=== PATIENT | female | born 1960 | race Caucasian/White ===

== ENCOUNTER 2016-04-27 13:13 | Emergency (ER) | payer BC ==
[2016-04-27 13:31] VITALS: TEMP 97.6
[2016-04-27 14:04] LABS: BASOPHILS % (AUTO) 2 % (0-3); EOSINOPHILS % (AUTO) 6 % (0-9); HEMATOCRIT 40 % (35-47); MEAN CORPUSCULAR HGB CONC 34.1 gm/dl (32.0-36.0); MEAN CORPUSCULAR VOLUME 94 fL (81-99); MONOCYTES % (AUTO) 8.2 % (0-12)
[2016-04-27 14:22] LABS: ALBUMIN 3.8 gm/dl (3.4-5.0); ALT 23 IU/L (14-63); CALCIUM 8.5 mg/dl (8.5-10.1); GLOM FILT RATE 61 mL/min (>60); SODIUM 141 mMol/L (136-145); THYROID STIMULATING HORMONE 2.597 uU/ml (0.358-3.740)
[2016-04-27 15:08] LABS: APPEARANCE,URINE Clear; BILIRUBIN,URINE NEGATIVE (NEGATIVE); COLOR,URINE Yellow; GLUCOSE, URINE (UA) NEGATIVE (NEGATIVE); KETONES,URINE NEGATIVE (NEGATIVE); LEUKOCYTE ESTERASE ,URINE NEGATIVE (NEGATIVE); NITRATE,URINE NEGATIVE (NEGATIVE); OCCULT BLOOD,URINE TRACE INTACT (NEG-TRACE); PH,URINE 5.5; UROBILINOGEN,URINE 0.2 (0.2-1.0 EU)
[2016-04-27 15:20] LABS: RBC,URINE 0-1 (0-3AV/HPF)
[2016-04-27 15:21] LABS: AMPHETAMINES NEGATIVE (NEGATIVE); METHADONE NEGATIVE (NEGATIVE); OPIATES(OP13) NEGATIVE (NEGATIVE); OXYCODONE(OXY) NEGATIVE (NEGATIVE); PROPOXYPHENE(PPX) NEGATIVE (NEGATIVE); TRICYCLIC ANTIDEPRESSANTS NEGATIVE (NEGATIVE); WBC,URINE NEG (0-5AV/HPF)
[2016-04-27 15:46] VITALS: BP 126/79; PULSE 70; RESP 15; O2SAT 98
== END 2016-04-27 15:44 | disposition home or self-care (01) ==
LOC: ED 13:13
DX: R00.2 Palpitations (principal); R07.9 Chest pain, unspecified
CPT/HCPCS: 36415; 71020; 80053; 80305; 81001; 84443; 84484; 85025; 85610; 93005; 99284

== ENCOUNTER 2016-05-08 14:49 | Emergency (ER) | payer BC ==
[2016-05-08] MEDS ORDERED: ADENOSINE 3 MG/ML SOL IV PRN (15:19)
[2016-05-08] MEDS ORDERED: ADENOSINE 3 MG/ML SOL IV ONE (15:21)
[2016-05-08] MEDS: SODIUM CHLORIDE 0.9% FLUSH 10 ML SOL IV PRN ×2 (15:24→17:21)
[2016-05-08 15:30] LABS: BASOPHILS % (AUTO) 1 % (0-3); EOSINOPHILS % (AUTO) 3 % (0-9); HEMATOCRIT 39 % (35-47); MEAN CORPUSCULAR HGB CONC 33.3 gm/dl (32.0-36.0); MEAN CORPUSCULAR VOLUME 95 fL (81-99); MONOCYTES % (AUTO) 5.1 % (0-12); NEUTROPHILS % (AUTO) 69.4 % (37-80)
[2016-05-08] MEDS ORDERED: SODIUM CHLORIDE 0.9% 1000ML 1,000 ML IV SCH (15:30)
[2016-05-08 15:45] LABS: ALBUMIN 3.6 gm/dl (3.4-5.0); CALCIUM 8.9 mg/dl (8.5-10.1); POTASSIUM 4.4 mMol/L (3.5-5.1)
[2016-05-08 15:54] VITALS: TEMP 98.1
[2016-05-08] MEDS ORDERED: HEPARIN SODIUM 5000 U/ML SOL IV ONE (17:07)
[2016-05-08] MEDS ORDERED: ASPIRIN 81 MG CHEWABLE CTB ONE (17:14)
[2016-05-08] MEDS ORDERED: HEPARIN SODIUM 5000 U/ML SOL ONE (17:14)
[2016-05-08 18:32] VITALS: PULSE 81
[2016-05-08 18:33] VITALS: BP 133/79; RESP 18; O2SAT 100
[2016-05-09] MEDS ORDERED: ASPIRIN 325 MG TAB PO SCH (09:00)
== END 2016-05-08 19:12 | disposition short-term general hospital (02) ==
LOC: ED 14:49
DX: I47.1 Supraventricular tachycardia (principal); R79.89 Other specified abnormal findings of blood chemistry
CPT/HCPCS: 99285 ×3; 80053; 84484; 85025; 85378; 93005 ×2; J0153; J1644; 71010; 96365; 96374; 96375; 99283

== ENCOUNTER 2016-12-26 11:42 | Outpatient (CLI) | payer BC ==
[2016-05-08 18:33] VITALS: O2SAT 100
== END 2016-12-26 11:43 | disposition home or self-care (01) ==
LOC: CONVCARE 11:42
PROVIDERS: ATTEND Orthopaedic Surgery
DX: M25.561 Pain in right knee (principal); R60.0 Localized edema
CPT/HCPCS: 73562; 73721